=== PATIENT | female | born 1960 | race Asian ===

== ENCOUNTER 2018-03-25 07:23 | Day surgery (SDC) | payer OTHER ==
[2018-03-25] MEDS ORDERED: PROPOFOL 40 ML (09:40)
== END 2018-03-25 13:32 | disposition home or self-care (01) ==
LOC: GIL 07:23
DX: Z12.11 Encounter for screening for malignant neoplasm of colon (principal); K64.8 Other hemorrhoids
CPT/HCPCS: 45378